=== PATIENT | female | born 1985 | race Caucasian/White ===

== ENCOUNTER 2021-03-17 12:10 | Emergency (ER) | payer BC ==
[~2021-03-17] VITALS: Ht 165.1 cm; Wt 78.7 kg
[2021-03-17 12:29] VITALS: BP 159/96
[2021-03-17] MEDS ORDERED: ONDANSETRON 4 MG ODT PO ONE (14:05)
[2021-03-17] MEDS ORDERED: MORPHINE SULFATE 4 MG/ML SYR IM ONE (14:05)
[2021-03-17] MEDS ORDERED: LIDO15SO PO (14:21)
[2021-03-17] MEDS ORDERED: ACET-8386 PO (14:21)
[2021-03-17] MEDS ORDERED: COROTSOL RIGHT EAR (14:21)
--- NOTE | 2021-03-17 14:34 | NUR ---
35 Y/O FEMALE BIB SELF. PATIENT PRESENTS TO ED WITH RIGHT EAR PAIN. PT STATES SHE HAS PAIN AND DRAINAGE FROM RIGHT EAR; RECENTLY SEEN PMD AND IS ON PAIN MEDICATION AND ABX; PT STATES PAIN IS STILL TOO MUCH. DENIES N/V/D; SKIN IS PINK/WARM/DRY; AAOX4 WITH EVEN AND STEADY GAIT; LUNGS CLEAR BL; HR EVEN AND REGULAR; PT DENIES ANY FEVER, CP, SOB, OR COUGH AT THIS TIME; PATIENT STATES PAIN OF 8/10 AT THIS TIME; VSS; PATIENT POSITIONED FOR COMFORT; HOB ELEVATED; BEDRAILS UP X1; BED DOWN. ER MD MADE AWARE OF PT STATUS. PMH: DENIES NKDA MEDS: DENIES
[2021-03-17 15:01] VITALS: BP 159/96
--- NOTE | 2021-03-17 15:01 | NUR ---
Patient discharged with v/s stable. Written and verbal after care instructions given and explained. Patient alert, oriented and verbalized understanding of instructions. Ambulatory with steady gait. All questions addressed prior to discharge. ID band removed. Patient advised to follow up with PMD. Rx of HYDROCODONE/ACETAMINOPHEN, NEOMYCIN, AND LIDOCAINE given. Patient educated on indication of medication including possible reaction and side effects. Opportunity to ask questions provided and answered. PT HAS CALM DEMEANOR, UNLABORED BREATHING W/ EQUAL CHEST RISE/FALL, AMBULATES W/ STEADY GAIT.
== END 2021-03-17 15:01 | disposition home or self-care (01) ==
LOC: MED 12:10
DX: H60.91 Unspecified otitis externa, right ear (principal)
CPT/HCPCS: 96372; 99283; J2270; Q0162